=== PATIENT | male | born 1965 | race Two or more races ===

== ENCOUNTER 2020-12-04 10:31 | Outpatient (CLI) | payer OTHER | END 2020-12-04 10:37 | disposition home or self-care (01) | LOC: LAB 10:31 | PROVIDERS: ATTEND Surgery | DX: R97.20 Elevated prostate specific antigen [PSA] (principal) ==

== ENCOUNTER 2020-12-10 07:07 | Outpatient (CLI) | payer OTHER | END 2020-12-10 07:17 | disposition home or self-care (01) | LOC: SONOGRAMA 07:07 | PROVIDERS: ATTEND Surgery | DX: D29.1 Benign neoplasm of prostate (principal); R97.20 Elevated prostate specific antigen [PSA] ==

== ENCOUNTER 2021-05-07 07:48 | Day surgery (SDC) | payer OTHER ==
[~2021-05-07 07:48] MED LIST: COZAAR50 MG PO; LEVOTHYROXINE25 MCG PO; METFORMIN HCL500 M3 PO; TAMS0.4C PO; XARELTO10 MG PO
== END 2021-05-07 16:30 | disposition home or self-care (01) ==
LOC: CIR.AMB 07:48
PROVIDERS: ATTEND Surgery
DX: T83.420A Displacement of implanted penile prosthesis, initial encounter (principal); N48.6 Induration penis plastica; I10 Essential (primary) hypertension; E03.9 Hypothyroidism, unspecified; N40.0 Benign prostatic hyperplasia without lower urinary tract symptoms; F41.9 Anxiety disorder, unspecified; R20.2 Paresthesia of skin; Z86.711 Personal history of pulmonary embolism; E66.9 Obesity, unspecified; E11.9 Type 2 diabetes mellitus without complications; Z79.84 Long term (current) use of oral hypoglycemic drugs; Z79.01 Long term (current) use of anticoagulants